=== PATIENT | male | born 1990 | race American Indian/Alaskan Native ===

== ENCOUNTER 2017-10-30 21:07 | Emergency (ER) | payer SELFPAY ==
[2017-10-30 21:14] VITALS: BP 135/89
== END 2017-10-31 03:03 | disposition left against medical advice (07) ==
LOC: ED 21:07
DX: B99.9 Unspecified infectious disease (principal); Z53.21 Procedure and treatment not carried out due to patient leaving prior to being seen by health care provider

== ENCOUNTER 2017-11-03 18:21 | Emergency (ER) | payer OTHER ==
[2017-11-03 19:30] LABS: Bilirubin,Urine NEG (Negative); Blood,Urine NEG (Negative); Ketones,Urine NEG (Negative); Leukocyte Esterase,Urine NEG (Negative); Nitrite,Urine NEG (Negative); Protein,Urine <15 mg/dL mg/dL (Negative)
--- NOTE | 2017-11-03 20:33 | Ultrasound Report ---
FINAL REPORT EXAM: US TESTICULAR DOPPLER COMP HISTORY: testicular pain TECHNIQUE: Longitudinal and transverse grayscale, color, and Doppler sonographic images of the testicles were performed. Comparison: None FINDINGS: The right testicle measures 3.9 x 2.0 x 2.9 centimeters. The left testicle measures 4.4 x 2.0 x 3.4 centimeters. Both testicles demonstrate homogeneous echotexture and normal echogenicity with normal color and Doppler flow. There is no intratesticular mass lesion. A small right hydrocele is present. There is normal color flow to both epididymal heads and imaged bodies. No Valsalva was performed to assess for varicocele. IMPRESSION: Small right hydrocele. No testicular torsion, epididymitis, or epididymo-orchitis.
--- NOTE | 2017-11-04 04:09 | Emergency Department Report ---
ED Male HPI - General Chief complaint: Urogenital-Male Stated complaint: GENERAL PAIN Time Seen by Provider: 11/04/17 04:06 Source: patient Mode of arrival: Ambulatory Limitations: No Limitations - History of Present Illness Initial comments: 27YO MALE WITH RIGHT TESTICULAR PAIN THAT BEGAN 3 DAYS AGO. DENEIS DISCHARGE OR BURNING ON URINATION. PT HERE YESTERDAY BUT LEFT WITHOUT BEING SEEN - Related Data Previous Rx's Medication Instructions Recorded Last Taken Type oxyCODONE /ACETAMINOPHEN [Percocet 2 tab PO Q6HR PRN #10 tablet 11/04/17 Unknown Rx 5/325] Allergies Allergy/AdvReac Type Severity Reaction Status Date / Time No Known Allergies Allergy Unverified 10/30/17 21:11 ED Review of Systems ROS: Stated complaint: GENERAL PAIN Other details as noted in HPI Constitutional: denies: chills, fever Eyes: denies: eye pain, eye discharge, vision change ENT: denies: ear pain, throat pain Respiratory: denies: cough, shortness of breath, wheezing Cardiovascular: denies: chest pain, palpitations Endocrine: no symptoms reported Gastrointestinal: denies: abdominal pain, nausea, diarrhea Genitourinary: denies: urgency, dysuria, frequency, hematuria, discharge, testicular mass Musculoskeletal: denies: back pain, joint swelling, arthralgia Skin: denies: rash, lesions Neurological: denies: headache, weakness, paresthesias Psychiatric: denies: anxiety, depression Hematological/Lymphatic: denies: easy bleeding, easy bruising ED Past Medical Hx - Past Medical History Previous Medical History?: No - Surgical History Past Surgical History?: Yes Additional Surgical History: CIRCUMCISION - Social History Smoking Status: Never Smoker Substance Use Type: None - Medications Home Medications: Home Medications Medication Instructions Recorded Confirmed Last Taken Type oxyCODONE /ACETAMINOPHEN [Percocet 2 tab PO Q6HR PRN #10 tablet 11/04/17 Unknown Rx 5/325] ED Physical Exam - General Limitations: No Limitations General appearance: alert, in no apparent distress - Head Head exam: Present: atraumatic, normocephalic - Eye Eye exam: Present: normal appearance - ENT ENT exam: Present: mucous membranes moist - Neck Neck exam: Present: normal inspection, full ROM - Respiratory Respiratory exam: Present: normal lung sounds bilaterally. Absent: respiratory distress - Cardiovascular Cardiovascular Exam: Present: regular rate, normal rhythm. Absent: systolic murmur, diastolic murmur, rubs, gallop - GI/Abdominal GI/Abdominal exam: Present: soft, normal bowel sounds - Rectal Rectal exam: Present: deferred - exam: Present: normal inspection, testicular tenderness (RIGHT TESTES TENDERNESS), urethral discharge (UNCURE IF CLEAR OR SLIGHTLY YELLOW), circumcision, other (NO EPIDIDYMAL TENDERNESS). Absent: scrotal swelling, vertical testicular lie - Extremities Exam Extremities exam: Present: normal inspection, full ROM - Back Exam Back exam: Present: normal inspection, full ROM - Neurological Exam Neurological exam: Present: alert, oriented X3, CN II-XII intact - Psychiatric Psychiatric exam: Present: normal affect, normal mood - Skin Skin exam: Present: warm, dry, intact, normal color. Absent: rash ED Course Vital Signs 11/03/17 18:32 Temperature 98.4 F Pulse Rate 72 Respiratory 18 Rate Blood Pressure 135/75 O2 Sat by Pulse 100 Oximetry ED Medical Decision Making - Radiology Data Radiology results: report reviewed (TESTICULAR; SMALL RIGHT HYDROCELE) Critical care attestation.: If time is entered above; I have spent that time in minutes in the direct care of this critically ill patient, excluding procedure time. ED Disposition Clinical Impression: Testicular pain, right, Hydrocele in adult Disposition: DC-01 TO HOME OR SELFCARE Is pt being admited?: No Does the pt Need Aspirin: No Condition: Stable Instructions: Hydrocele (ED), Testicle Pain (ED) Prescriptions: oxyCODONE /ACETAMINOPHEN [Percocet 5/325] 2 tab PO Q6HR PRN #10 tablet PRN Reason: Pain Referrals: PRIMARY CARE,MD [Primary Care Provider] - 3-5 Days [facility] [Outside] - 3-[address] [facility] [Outside] - 3-5 Days Time of Disposition: 04:21
[2017-11-04] MEDS ORDERED: XYLOCAINE 1% MPF 5 mL INFILTRATI ONE (04:17)
[2017-11-04] MEDS ORDERED: ZITHROMAX PO ONE (04:17)
[2017-11-04] MEDS ORDERED: ROCEPHIN IM ONE (04:17)
[2017-11-04] MEDS ORDERED: XYLOCAINE 1% 20 mL ONE (04:28)
[2017-11-04] MEDS ORDERED: ZITHROMAX ONE (04:29)
[2017-11-04 05:08] VITALS: BP 107/65
== END 2017-11-04 04:50 | disposition home or self-care (01) ==
LOC: ED 18:21
DX: N43.3 Hydrocele, unspecified (principal)
CPT/HCPCS: 81001; 87591; 93975; 96372; 99284; J0696